=== PATIENT | male | born 1960 | race Caucasian/White ===

== ENCOUNTER 2016-07-12 07:00 | Day surgery (SDC) | payer MEDICARE ==
[~2016-07-12] VITALS: Ht 170.2 cm
--- NOTE | 2016-07-14 08:26 | OR ---
ADMIT: 07/12/2016 RM/LOC: [facility] MR#: [id number] [address] [facility] [address] [place], [place] [address] AVERY DEUTSCH [address] [place] [address] Operative/Delivery Room Report SEX: M AGE: 56 : 1960 SURGERY DATE: 07/12/2016 SURGEON: Melody Falk MD RODENT EXTERMINATOR: None. PREOPERATIVE DIAGNOSES: 1. Bilateral hip arthritis. 2. Bilateral hip pain. POSTOPERATIVE DIAGNOSES: 1. Bilateral hip arthritis. 2. Bilateral hip pain. PROCEDURE PERFORMED: Bilateral hip injection, anterior approach. INDICATIONS FOR PROCEDURE: The patient is a pleasant gentleman with history of chronic bilateral hip pain, comes here for planned bilateral hip injection ANESTHESIA: Local without sedation. ESTIMATED BLOOD LOSS: Zero. COMPLICATIONS: None immediately evident. DESCRIPTION OF PROCEDURE: After the patient was seen in the preoperative area, vitals signs were taken. Prior to the procedure, the risks, benefits, and alternative therapies were discussed at length. The patient's consent was obtained and updated. The patient was taken to the fluoroscopy suite and placed on the fluoroscopy table in the prone position. Pressure points were padded to comfort, monitors applied, and a time-out performed. C-arm was brought in to identify the right hip joint. Lidocaine plain 1%, approximately 1 mL, was used to anesthetize the skin and underlying subcutaneous tissue. A 3.5-inch 22-gauge curved-tip spinal needle was then advanced through the anesthetized skin and placed into the neck of right femur. Isovue-300 was injected and the joint spread was noted. After correct placement was confirmed, 5 mL of 0.25% bupivacaine and 40 mg of Depo-Medrol were injected. Then, we moved on to the left side and repeated the same procedure. The patient tolerated the procedure well without any complication. The patient was brought to PACU, where the patient recovered nicely. The patient was examined afterwards and had 80% reduction of pain. Melody Falk MD/ shanta JOB #: [id number] CC: Melody Falk MD, Attending Physician ADMIT: 07/12/2016 RM/LOC: [facility] MR#: [id number] [facility] [address] [address] [facility] [address] [place] [address] Operative/Delivery Room Report SEX: M AGE: 56 : 1960 Rakesh Muhammad MD, Family Physician
[2016-12-14] MEDS ORDERED: PROBIOTIC1 EAC1 PO (19:56)
[2016-12-14] MEDS ORDERED: MIRALAX PACKET17 GM PO (19:56)
[2016-12-14] MEDS ORDERED: PRILOSEC DPS20 MG PO (19:56)
[2016-12-14] MEDS ORDERED: NICOTINE PATCH1 EAC1 TD (19:56)
[2016-12-14] MEDS ORDERED: RISPERDAL4 MG PO (19:56)
[2016-12-14] MEDS ORDERED: XARELTO10 MG PO (19:57)
[2016-12-14] MEDS ORDERED: SENOKOT-S TABL1 EACH PO (19:57)
[2016-12-14] MEDS ORDERED: FLEXERIL-DPS10 MG PO (19:57)
[2016-12-14] MEDS ORDERED: OXY IR DPS5 MG PO (19:58)
== END 2016-07-12 09:57 | disposition home or self-care (01) ==
LOC: SSS 07:00
PROC: 3E0U33Z Introduction of Anti-inflammatory into Joints, Percutaneous Approach (ICD-10-PCS; principal; 2016-07-12)
DX: G89.29 Other chronic pain (principal); M16.0 Bilateral primary osteoarthritis of hip; M87.059 Idiopathic aseptic necrosis of unspecified femur; F41.9 Anxiety disorder, unspecified; F10.21 Alcohol dependence, in remission; Z79.899 Other long term (current) drug therapy; F17.200 Nicotine dependence, unspecified, uncomplicated; Z88.1 Allergy status to other antibiotic agents; Z91.011 Allergy to milk products; Z91.018 Allergy to other foods